=== PATIENT | male | born 1960 | race Caucasian/White ===

== ENCOUNTER 2018-09-20 16:03 | Emergency (ER) | payer BC ==
[~2018-09-20] VITALS: Ht 175.3 cm; Wt 103.6 kg
--- NOTE | 2018-09-20 16:52 | NUR ---
Patient ambulated to [facility] bed from [facility] with slow but steady gait. at bedside.
--- NOTE | 2018-09-20 17:00 | NUR ---
Patients came to nurses station stating that her husbands pupils are changing and that he is drooling and some facial droop. Focused assessment completed. pupils are 1 mm. Not tested with light. Pts smile equal, puffed cheeks equally, tongue midline. Primary RN Angle informed.
--- NOTE | 2018-09-20 17:58 | NUR ---
Patient to CT in w/c.
--- NOTE | 2018-09-20 18:07 | NUR ---
Patient back from CT
[2018-09-20 18:25] LABS: MAGNESIUM 2.4 MG/DL (1.5-2.4)
[2018-09-20] MEDS ORDERED: normal saline 1000ml 1,000 ML IV ONE (18:36)
[2018-09-20] MEDS ORDERED: proCHLORperazine 10 MG/2 ml inj IV ONE (18:40)
[2018-09-20 18:48] LABS: BASOPHILS % (AUTO) 0.2 % (0-1); EOSINOPHILS % (AUTO) 0.2 % (0-6); HEMATOCRIT 49.7 % (42.0-52.0); HEMOGLOBIN 16.4 g/dl (14.0-17.9); LYMPHOCYTES # (AUTO) 1.1 X10'3 (1.1-4.8); LYMPHOCYTES % (AUTO) 7.5 % (21-51); MEAN CORPUSCULAR HEMOGLOBIN 29.2 PG (27.0-31.0); MEAN CORPUSCULAR HGB CONC 33.1 g/dL (33.0-36.5); MEAN CORPUSCULAR VOLUME 88.2 FL (78-98); MEAN PLATELET VOLUME 8.4 FL (7.4-10.4); MONOCYTES # (AUTO) 0.9 X10'3 (0-0.9); MONOCYTES % (AUTO) 6.4 % (2-12); NEUTROPHILS # (AUTO) 12.6 X10'3 (1.8-7.7); NEUTROPHILS % (AUTO) 85.7 % (42-75); PLATELET COUNT 396 X10'3 (140-440); RED BLOOD COUNT 5.63 X10'6 (4.70-6.10); RED CELL DISTRIBUTION WIDTH 13.1 % (11.5-14.5); WHITE BLOOD COUNT 14.7 X10'3 (4.5-11.0)
[2018-09-20 18:59] LABS: ALANINE AMINOTRANSFERASE 30 U/L (12-78); ALBUMIN 3.9 G/DL (3.4-5.0); ALBUMIN/GLOBULIN RATIO 0.8 (1.1-1.5); ALKALINE PHOSPHATASE 110 IU/L (46-116); ANION GAP 11 (8-16); ASPARTATE AMINO TRANSFERASE 10 U/L (10-37); BILIRUBIN,TOTAL 0.5 MG/DL (0.1-1.0); BLOOD UREA NITROGEN 12 MG/DL (7-18); BUN/CREATININE RATIO 11.8 (5.4-32.0); CALCIUM 9.5 MG/DL (8.5-10.1); CHLORIDE 96 MMOL/L (99-107); CREATININE 1.02 MG/DL (0.60-1.10); GLUCOSE 119 MG/DL (70-104); POTASSIUM 3.6 MMOL/L (3.5-5.1); SODIUM 137 MMOL/L (135-145); TOTAL CARBON DIOXIDE 29.8 MMOL/L (24-32); TOTAL PROTEIN 8.5 G/DL (6.4-8.2); eGFR 75 ML/MIN
[2018-09-20 19:01] LABS: PARTIAL THROMBOPLASTIN TIME 32 SECONDS (22-32)
[2018-09-20 19:02] LABS: TROPONIN I < 0.04 NG/ML (0.0-0.05)
[2018-09-20] MEDS ORDERED: dexamethasone sod phosphate 10mg/ml inj IV STA (20:08)
[2018-09-20] MEDS ORDERED: ondansetron/PF 4mg/2ml inj IV ONE (20:10)
[2018-09-20 20:28] VITALS: BP 166/106
== END 2018-09-20 21:26 | disposition short-term general hospital (02) ==
LOC: ER 16:03
DX: G93.89 Other specified disorders of brain (principal); C71.9 Malignant neoplasm of brain, unspecified; G93.5 Compression of brain; I10 Essential (primary) hypertension; R42 Dizziness and giddiness; R41.0 Disorientation, unspecified
CPT/HCPCS: 36415; 70460; 71045; 80053; 83735; 84484; 85025; 85610; 85730; 93005; 96361; 96374; 96375; 99291; 99292; J0780; J1100; J2405; J7030

== ENCOUNTER 2018-12-31 10:38 | Emergency (ER) | payer BC ==
[~2018-12-31] VITALS: Ht 177.8 cm; Wt 100.0 kg
--- NOTE | 2018-12-31 11:00 | NUR ---
Patient diagnosed with Glioblastoma on September 20, 2018. Patient is followed at [facility] by Dr. Yeung office phone number . His radiation/oncologist id Dr Wan office number . Patient finished his radiation on last 12/08/18. Patient is taking part of a clinical trial (immunotherapy) and his last dose was Friday, December 28, 2018.
[2018-12-31] MEDS ORDERED: IBUP-1984 PO (11:02)
[2018-12-31] MEDS ORDERED: ONDA4TAB6 PO (11:02)
[2018-12-31] MEDS ORDERED: DIPH-423 PO (11:02)
[2018-12-31] MEDS ORDERED: FAMO40TA73 PO (11:02)
[2018-12-31] MEDS ORDERED: AMLO2.5T2 PO (11:02)
[2018-12-31] MEDS ORDERED: LOSA25TA96 PO (11:02)
[2018-12-31 11:03] LABS: BASOPHILS % (AUTO) 0.3 % (0-1); EOSINOPHILS # (AUTO) 0.2 X10'3 (0-0.9); EOSINOPHILS % (AUTO) 4.5 % (0-6); HEMOGLOBIN 14.3 g/dl (14.0-17.9); LYMPHOCYTES # (AUTO) 0.5 X10'3 (1.1-4.8); LYMPHOCYTES % (AUTO) 11.2 % (21-51); MEAN CORPUSCULAR HEMOGLOBIN 32.1 PG (27.0-31.0); MEAN CORPUSCULAR HGB CONC 34.8 g/dL (33.0-36.5); MEAN CORPUSCULAR VOLUME 92.3 FL (78-98); MEAN PLATELET VOLUME 6.2 FL (7.4-10.4); MONOCYTES # (AUTO) 0.3 X10'3 (0-0.9); MONOCYTES % (AUTO) 6.3 % (2-12); NEUTROPHILS # (AUTO) 3.5 X10'3 (1.8-7.7); NEUTROPHILS % (AUTO) 77.7 % (42-75); PLATELET COUNT 200 X10'3 (140-440); RED BLOOD COUNT 4.44 X10'6 (4.70-6.10); RED CELL DISTRIBUTION WIDTH 16.3 % (11.5-14.5); WHITE BLOOD COUNT 4.5 X10'3 (4.5-11.0)
--- NOTE | 2018-12-31 11:11 | NUR ---
Dr Torres asked if he wanted tele nuero and or a ua; neither wanted by Dr Torres at this time
[2018-12-31 11:20] LABS: PARTIAL THROMBOPLASTIN TIME 27 SECONDS (22-32)
[2018-12-31 11:24] LABS: ALANINE AMINOTRANSFERASE 34 U/L (12-78); ALBUMIN 3.2 G/DL (3.4-5.0); ALBUMIN/GLOBULIN RATIO 0.8 (1.1-1.5); ALKALINE PHOSPHATASE 80 IU/L (46-116); ANION GAP 10 (8-16); ASPARTATE AMINO TRANSFERASE 13 U/L (10-37); BILIRUBIN,TOTAL 0.4 MG/DL (0.1-1.0); BLOOD UREA NITROGEN 7 MG/DL (7-18); BUN/CREATININE RATIO 7.4 (5.4-32.0); CALCIUM 8.9 MG/DL (8.5-10.1); CHLORIDE 104 MMOL/L (99-107); CREATININE 0.95 MG/DL (0.60-1.10); GLUCOSE 102 MG/DL (70-104); POTASSIUM 3.5 MMOL/L (3.5-5.1); SODIUM 141 MMOL/L (135-145); TOTAL CARBON DIOXIDE 26.7 MMOL/L (24-32); TOTAL PROTEIN 7.2 G/DL (6.4-8.2); eGFR 81 ML/MIN
[2018-12-31 11:28] LABS: TROPONIN I < 0.04 NG/ML (0.0-0.05)
--- NOTE | 2018-12-31 11:45 | NUR ---
stroke alert called off dr marvin : patient has history of right temporal glioblastoma removal in september of this year with susequent radiation, chemo, and immunotherapy
--- NOTE | 2018-12-31 11:53 | NUR ---
[facility] TRANSFER [facility] HAS CALLED STATING DR. APPLE, NEUROLOGIST IS REVIEWING THE IMAGES AND WILL CALL BACK.
[2018-12-31] MEDS ORDERED: dexamethasone 4mg/ml inj IV SCH (13:20)
[2018-12-31 13:48] VITALS: BP 149/86
== END 2018-12-31 14:00 | disposition short-term general hospital (02) ==
LOC: ER 10:40
DX: I63.9 Cerebral infarction, unspecified (principal); C71.9 Malignant neoplasm of brain, unspecified; I10 Essential (primary) hypertension; Z79.899 Other long term (current) drug therapy
CPT/HCPCS: 36415; 70450; 71045; 80053; 82948; 84484; 85025; 85610; 85730; 93005; 96374; 99291; J1100

== ENCOUNTER 2019-02-11 09:20 | Outpatient (CLI) | payer BC ==
[~2019-02-11 09:20] MED LIST: AMLO2.5T2 PO; DIPH-423 PO; FAMO40TA73 PO; IBUP-1984 PO; LOSA25TA96 PO; ONDA4TAB6 PO
[2019-02-11] MEDS ORDERED: POLY17PO10 PO (13:29)
[2019-02-11] MEDS ORDERED: LEVE500T PO (13:29)
[2019-02-11] MEDS ORDERED: ONDA8TAB12 PO ×2 (13:29→14:29)
[2019-02-11] MEDS ORDERED: TEMO250C6 PO (13:29)
[2019-02-11] MEDS ORDERED: AMLO10TA13 PO (14:31)
[2019-02-11] MEDS ORDERED: LOSA100T57 PO (14:33)
== END 2019-02-11 23:59 | disposition home or self-care (01) ==
LOC: VAS 09:20
PROVIDERS: ATTEND Internal Medicine Hematology & Oncology
DX: I82.402 Acute embolism and thrombosis of unspecified deep veins of left lower extremity (principal); R60.9 Edema, unspecified; C71.2 Malignant neoplasm of temporal lobe
CPT/HCPCS: 93971

== ENCOUNTER 2019-02-11 11:19 | Inpatient (IN) | payer BC ==
[~2019-02-11] VITALS: Ht 177.8 cm; Wt 102.7 kg
[2019-02-11] MEDS ORDERED: ONDA8TAB12 PO ×2 (13:29→14:29)
[2019-02-11] MEDS ORDERED: TEMO250C6 PO (13:29)
[2019-02-11] MEDS ORDERED: LEVE500T PO (13:29)
[2019-02-11] MEDS ORDERED: POLY17PO10 PO (13:29)
[2019-02-11] MEDS ORDERED: iohexol 350MG/ML 100ml bottle IV ONE (14:05)
[2019-02-11 14:16] LABS: EOSINOPHILS % (AUTO) 0 % (0-6); HEMOGLOBIN 12.5 g/dl (14.0-17.9); LYMPHOCYTES # (AUTO) 0.5 X10'3 (1.1-4.8); MEAN CORPUSCULAR HEMOGLOBIN 31.9 PG (27.0-31.0); MONOCYTES # (AUTO) 0.7 X10'3 (0-0.9); MONOCYTES % (AUTO) 4.1 % (2-12)
[2019-02-11 14:18] LABS: BASOPHILS % (AUTO) 0.1 % (0-1); HEMATOCRIT 36.4 % (42.0-52.0); LYMPHOCYTES % (AUTO) 2.8 % (21-51); MEAN CORPUSCULAR HGB CONC 34.4 g/dL (33.0-36.5); MEAN CORPUSCULAR VOLUME 92.6 FL (78-98); MEAN PLATELET VOLUME 6.8 FL (7.4-10.4); NEUTROPHILS # (AUTO) 16.5 X10'3 (1.8-7.7); PLATELET COUNT 306 X10'3 (140-440); RED BLOOD COUNT 3.93 X10'6 (4.70-6.10); RED CELL DISTRIBUTION WIDTH 15.6 % (11.5-14.5); WHITE BLOOD COUNT 17.8 X10'3 (4.5-11.0)
[2019-02-11 14:24] LABS: ALANINE AMINOTRANSFERASE 33 U/L (12-78); ALBUMIN/GLOBULIN RATIO 0.8 (1.1-1.5); ALKALINE PHOSPHATASE 87 IU/L (46-116); ANION GAP 8 (8-16); ASPARTATE AMINO TRANSFERASE 22 U/L (10-37); BILIRUBIN,TOTAL 0.3 MG/DL (0.1-1.0); BLOOD UREA NITROGEN 17 MG/DL (7-18); BUN/CREATININE RATIO 21.3 (5.4-32.0); CALCIUM 8.9 MG/DL (8.5-10.1); CHLORIDE 107 MMOL/L (99-107); GLUCOSE 103 MG/DL (70-104); SODIUM 141 MMOL/L (135-145); TOTAL CARBON DIOXIDE 26.2 MMOL/L (24-32); TOTAL PROTEIN 6.6 G/DL (6.4-8.2); eGFR > 90 ML/MIN
[2019-02-11 14:30] LABS: ANISOCYTOSIS 1+; PARTIAL THROMBOPLASTIN TIME 21 SECONDS (22-32); PLATELET ESTIMATE NORMAL; TOTAL CELLS COUNTED 100; TOXIC GRANULATION 1+
[2019-02-11] MEDS ORDERED: AMLO10TA13 PO (14:31)
[2019-02-11] MEDS ORDERED: LOSA100T57 PO (14:33)
[2019-02-11] MEDS ORDERED: enoxaparin 100mg/ml syringe SUBCUT ONE (15:05)
[2019-02-11] MEDS ORDERED: potassium CL 10mEq/100ml bag 100 ML IV PRN ×2 (15:35)
[2019-02-11] MEDS ORDERED: magnesium Cl slow-release 64mg tablet PO PRN (15:35)
[2019-02-11] MEDS ORDERED: potassium Cl 20 mEq SR tablet PO PRN (15:35)
[2019-02-11] MEDS ORDERED: magnesium 4gm in 100ml NS 100 ML IV PRN (15:35)
[2019-02-11] MEDS ORDERED: morphine 2 MG/ML inj. syringe IV PRN (15:35)
[2019-02-11] MEDS ORDERED: ondansetron/PF 4mg/2ml inj IV PRN (15:35)
[2019-02-11] MEDS ORDERED: magnesium 2GM in 50ml NS 50 ML IV PRN (15:35)
--- NOTE | 2019-02-11 16:35 | NUR ---
I have received patient report from Nemesio THAYER
[2019-02-11 17:14] VITALS: BP 147/96
[2019-02-11] MEDS ORDERED: polyethylene glycol 3350 17gm powd pack PO PRN (17:40)
--- NOTE | 2019-02-11 18:10 | NUR ---
Patient in room ORTHO 4024. I have received report from FLACA Dominguez and had the opportunity to ask questions and assume patient care.
--- NOTE | 2019-02-11 18:30 | NUR ---
Problems reprioritized. Patient report given, questions answered & plan of care reviewed with Jennifer THAYER.
[2019-02-11] MEDS: levetiracetam 250mg tablet PO SCH (19:40)
[2019-02-11] MEDS: enoxaparin 100mg/ml syringe SUBCUT SCH (19:42)
[2019-02-11] MEDS: K and/or MAG REPLACEMENT MC SCH (20:00)
[2019-02-11] MEDS: ondansetron 4mg rapidly disintigrating tab PO SCH (20:10)
[2019-02-11 22:00] VITALS: BP 125/67
[2019-02-12 04:33] LABS: BASOPHILS % (AUTO) 0.1 % (0-1); EOSINOPHILS % (AUTO) 0 % (0-6); HEMATOCRIT 35.1 % (42.0-52.0); LYMPHOCYTES # (AUTO) 0.6 X10'3 (1.1-4.8); LYMPHOCYTES % (AUTO) 4.4 % (21-51); MEAN CORPUSCULAR HGB CONC 34.3 g/dL (33.0-36.5); MEAN CORPUSCULAR VOLUME 93.3 FL (78-98); MEAN PLATELET VOLUME 6.9 FL (7.4-10.4); MONOCYTES # (AUTO) 1.1 X10'3 (0-0.9); MONOCYTES % (AUTO) 8.2 % (2-12); NEUTROPHILS # (AUTO) 12.1 X10'3 (1.8-7.7); NEUTROPHILS % (AUTO) 87.3 % (42-75); PLATELET COUNT 308 X10'3 (140-440); RED BLOOD COUNT 3.77 X10'6 (4.70-6.10); RED CELL DISTRIBUTION WIDTH 15.2 % (11.5-14.5); WHITE BLOOD COUNT 13.8 X10'3 (4.5-11.0)
[2019-02-12 04:44] LABS: ALBUMIN 2.7 G/DL (3.4-5.0); ANION GAP 8 (8-16); BLOOD UREA NITROGEN 21 MG/DL (7-18); BUN/CREATININE RATIO 24.4 (5.4-32.0); CALCIUM 8.5 MG/DL (8.5-10.1); CHLORIDE 107 MMOL/L (99-107); CREATININE 0.86 MG/DL (0.60-1.10); GLUCOSE 97 MG/DL (70-104); POTASSIUM 3.9 MMOL/L (3.5-5.1); SODIUM 142 MMOL/L (135-145); TOTAL CARBON DIOXIDE 27.3 MMOL/L (24-32); eGFR > 90 ML/MIN
[2019-02-12 06:10] VITALS: BP 166/77
--- NOTE | 2019-02-12 06:12 | NUR ---
Problems reprioritized. Patient report given, questions answered & plan of care reviewed with FLACA Dominguez.
--- NOTE | 2019-02-12 06:30 | NUR ---
Patient in room ORTHO 4024. I have received report from Jennifer THAYER and had the opportunity to ask questions and assume patient care.
[2019-02-12] MEDS: K and/or MAG REPLACEMENT MC SCH ×2 (08:00→20:00)
[2019-02-12] MEDS: enoxaparin 100mg/ml syringe SUBCUT SCH ×2 (08:39→19:40)
[2019-02-12] MEDS: losartan 50mg tablet PO SCH (08:40)
[2019-02-12] MEDS: amLODIPine 5mg tablet PO SCH (08:40)
[2019-02-12] MEDS: famotidine 20mg tablet PO SCH (08:40)
[2019-02-12] MEDS: levetiracetam 250mg tablet PO SCH ×2 (08:40→19:38)
[2019-02-12] MEDS: ondansetron 4mg rapidly disintigrating tab PO SCH ×2 (08:40→19:37)
[2019-02-12 10:00] VITALS: BP 123/72
[2019-02-12 18:00] VITALS: BP 104/59
--- NOTE | 2019-02-12 19:00 | NUR ---
Patient in room ORTHO 4024. I have received report from Wilbert THAYER and had the opportunity to ask questions and assume patient care.
[2019-02-12] MEDS: HYDROcodone/acetaminophen 5mg/325mg tablet PO PRN (19:39)
[2019-02-12 22:00] VITALS: BP 115/63
[2019-02-13] MEDS: HYDROcodone/acetaminophen 5mg/325mg tablet PO PRN ×3 (04:07→16:54)
[2019-02-13 06:00] VITALS: BP 126/65
[2019-02-13 06:06] LABS: BASOPHILS % (AUTO) 0.1 % (0-1); EOSINOPHILS # (AUTO) 0.1 X10'3 (0-0.9); EOSINOPHILS % (AUTO) 0.8 % (0-6); HEMATOCRIT 33.7 % (42.0-52.0); HEMOGLOBIN 11.5 g/dl (14.0-17.9); LYMPHOCYTES # (AUTO) 0.5 X10'3 (1.1-4.8); LYMPHOCYTES % (AUTO) 5.6 % (21-51); MEAN CORPUSCULAR HEMOGLOBIN 32.1 PG (27.0-31.0); MEAN CORPUSCULAR HGB CONC 34.1 g/dL (33.0-36.5); MEAN CORPUSCULAR VOLUME 94.2 FL (78-98); MEAN PLATELET VOLUME 6.6 FL (7.4-10.4); MONOCYTES # (AUTO) 0.9 X10'3 (0-0.9); MONOCYTES % (AUTO) 10.5 % (2-12); NEUTROPHILS # (AUTO) 7.4 X10'3 (1.8-7.7); PLATELET COUNT 247 X10'3 (140-440); RED BLOOD COUNT 3.58 X10'6 (4.70-6.10); RED CELL DISTRIBUTION WIDTH 15.5 % (11.5-14.5); WHITE BLOOD COUNT 8.9 X10'3 (4.5-11.0)
[2019-02-13 06:08] LABS: ALBUMIN 2.3 G/DL (3.4-5.0); ANION GAP 6 (8-16); BLOOD UREA NITROGEN 20 MG/DL (7-18); BUN/CREATININE RATIO 21.3 (5.4-32.0); CHLORIDE 108 MMOL/L (99-107); CREATININE 0.94 MG/DL (0.60-1.10); GLUCOSE 87 MG/DL (70-104); MAGNESIUM 1.8 MG/DL (1.5-2.4); POTASSIUM 3.4 MMOL/L (3.5-5.1); SODIUM 141 MMOL/L (135-145); TOTAL CARBON DIOXIDE 26.7 MMOL/L (24-32); eGFR 82 ML/MIN
--- NOTE | 2019-02-13 06:15 | NUR ---
Patient in room ORTHO 4024. I have received report from FLACA Larson and had the opportunity to ask questions and assume patient care.
[2019-02-13 06:47] LABS: NUCLEATED RED BLOOD CELLS 2 /100WBC (0-0); TOTAL CELLS COUNTED 100
[2019-02-13 06:48] LABS: ANISOCYTOSIS 1+; PLATELET ESTIMATE NORMAL; POLYCHROMASIA 1+; TOXIC GRANULATION 1+
[2019-02-13] MEDS: losartan 50mg tablet PO SCH (08:33)
[2019-02-13] MEDS: amLODIPine 5mg tablet PO SCH (08:34)
[2019-02-13] MEDS: ondansetron 4mg rapidly disintigrating tab PO SCH ×2 (08:34→20:08)
[2019-02-13] MEDS: famotidine 20mg tablet PO SCH (08:34)
[2019-02-13] MEDS: levetiracetam 250mg tablet PO SCH ×2 (08:34→20:09)
[2019-02-13] MEDS: enoxaparin 100mg/ml syringe SUBCUT SCH ×2 (08:36→20:11)
[2019-02-13] MEDS: potassium Cl 20 mEq SR tablet PO PRN ×3 (08:38→19:10)
[2019-02-13] MEDS: K and/or MAG REPLACEMENT MC SCH ×2 (08:39→20:00)
[2019-02-13 10:00] VITALS: BP 127/69
[2019-02-13 18:00] VITALS: BP 126/69
--- NOTE | 2019-02-13 18:30 | NUR ---
Problems reprioritized. Patient report given, questions answered & plan of care reviewed with FLACA Recinos.
[2019-02-13 22:00] VITALS: BP 121/69
[2019-02-14] MEDS: HYDROcodone/acetaminophen 5mg/325mg tablet PO PRN ×2 (02:16→08:26)
[2019-02-14 06:15] LABS: BASOPHILS % (AUTO) 0.2 % (0-1); EOSINOPHILS # (AUTO) 0.1 X10'3 (0-0.9); EOSINOPHILS % (AUTO) 1.4 % (0-6); HEMATOCRIT 32.7 % (42.0-52.0); HEMOGLOBIN 11.4 g/dl (14.0-17.9); LYMPHOCYTES # (AUTO) 0.3 X10'3 (1.1-4.8); LYMPHOCYTES % (AUTO) 3.5 % (21-51); MEAN CORPUSCULAR HEMOGLOBIN 32.5 PG (27.0-31.0); MEAN CORPUSCULAR HGB CONC 34.8 g/dL (33.0-36.5); MEAN CORPUSCULAR VOLUME 93.3 FL (78-98); MEAN PLATELET VOLUME 7.2 FL (7.4-10.4); MONOCYTES # (AUTO) 0.7 X10'3 (0-0.9); MONOCYTES % (AUTO) 7.8 % (2-12); NEUTROPHILS # (AUTO) 7.8 X10'3 (1.8-7.7); NEUTROPHILS % (AUTO) 87.1 % (42-75); PLATELET COUNT 224 X10'3 (140-440); RED CELL DISTRIBUTION WIDTH 15.4 % (11.5-14.5)
[2019-02-14 06:26] LABS: ALBUMIN 2.2 G/DL (3.4-5.0); ANION GAP 7 (8-16); BLOOD UREA NITROGEN 15 MG/DL (7-18); BUN/CREATININE RATIO 18.3 (5.4-32.0); CALCIUM 8.2 MG/DL (8.5-10.1); CHLORIDE 107 MMOL/L (99-107); CREATININE 0.82 MG/DL (0.60-1.10); GLUCOSE 97 MG/DL (70-104); MAGNESIUM 1.8 MG/DL (1.5-2.4); POTASSIUM 3.7 MMOL/L (3.5-5.1); SODIUM 139 MMOL/L (135-145); TOTAL CARBON DIOXIDE 24.6 MMOL/L (24-32); eGFR > 90 ML/MIN
--- NOTE | 2019-02-14 06:27 | NUR ---
Patient in room ORTHO 4024. I have received report from FLACA Crabtree and had the opportunity to ask questions and assume patient care.
[2019-02-14 07:24] VITALS: BP 120/76
[2019-02-14 08:00] VITALS: BP 120/73
[2019-02-14] MEDS: K and/or MAG REPLACEMENT MC SCH (08:00)
[2019-02-14] MEDS ORDERED: famotidine 10mg tablet PO SCH ×3 (08:19→11:12)
[2019-02-14] MEDS: levetiracetam 250mg tablet PO SCH (08:22)
[2019-02-14] MEDS: losartan 50mg tablet PO SCH (08:22)
[2019-02-14] MEDS: amLODIPine 5mg tablet PO SCH (08:22)
[2019-02-14] MEDS: ondansetron 4mg rapidly disintigrating tab PO SCH (08:23)
[2019-02-14] MEDS: enoxaparin 100mg/ml syringe SUBCUT SCH (08:24)
[2019-02-14 08:31] LABS: MONOCYTES % (MANUAL) 7 % (2-12); NEUTROPHILS % (MANUAL) 80 % (42-75); TOTAL CELLS COUNTED 100
[2019-02-14 08:32] LABS: PLATELET ESTIMATE NORMAL
[2019-02-14 08:33] LABS: ANISOCYTOSIS 1+; POLYCHROMASIA 1+
[2019-02-14] MEDS ORDERED: famotidine 20mg tablet PO SCH (09:55)
[2019-02-14] MEDS ORDERED: ENOX100D5 SUBCUT (10:32)
--- NOTE | 2019-02-14 11:13 | NUR ---
Student Medication Administration: For this medication-pass time frame [id number], all medications were reviewed,administered and documented per hospital policy by Michelle Lainez. Student documentation: I have reviewed and agree with all interventions, assessments performed and documented by Michelle Lainez.
--- NOTE | 2019-02-14 11:57 | NUR ---
Problems reprioritized. Patient report given, questions answered & plan of care reviewed with FLACA Crabtree.
--- NOTE | 2019-02-14 15:40 | NUR ---
Received discharge orders from Dr. Franklin. has questions that she would like to speak to about prior to discharge regarding plan of care following discharge, ambulatory status, and further treatment if needed. Pts sleeping so took pts Zainab to dictation room to speak on the phone with . TC placed and informed Dr.Behl Juárezy has questions for her and would like to speak with her. Dr. Franklin infomed Zainab that the treatment of the patients DVT and PE's would be to use Lovenox, but that pt will continue the Lovenox 100mg bid x [address] Franklin informed Zainab that pt can ambulate and his pain and swelling may last up to a couple of weeks. advised pt to follow up with D MD in the next few days. Zainab reported pt has an appt at [facility] next Thursday. Zainab expressed concern over might needing to return to [facility] if the pt has any complications post discharge. Dr. Franklin informed her to return here if any concerns. RX for Lovenox called into [facility] on [address] for bid dose x 30days. IV dc'd from [facility] with cannula intact. Applied slight pressure over IV site and applied bandaid. Reviewed discharge paperwork with pt and his Zainab.Discharged pt via w/c to front lobby in a private vehicle.
[2019-02-15] MEDS ORDERED: famotidine 20mg tablet PO SCH (08:00)
== END 2019-02-14 15:40 | disposition home or self-care (01) | DRG 299 ==
LOC: ER 11:20 → ED HOLD 15:41 → ORTHO 4S 16:50
PROVIDERS: ADMIT Internal Medicine; ATTEND Internal Medicine
PROC: B32T1ZZ Computerized Tomography (CT Scan) of Left Pulmonary Artery using Low Osmolar Contrast (ICD-10-PCS; principal; 2019-02-11)
PROC: B3201ZZ Computerized Tomography (CT Scan) of Thoracic Aorta using Low Osmolar Contrast (ICD-10-PCS; 2019-02-11)
PROC: B32S1ZZ Computerized Tomography (CT Scan) of Right Pulmonary Artery using Low Osmolar Contrast (ICD-10-PCS; 2019-02-11)
DX: I82.412 Acute embolism and thrombosis of left femoral vein (principal); I26.99 Other pulmonary embolism without acute cor pulmonale; C71.9 Malignant neoplasm of brain, unspecified; I10 Essential (primary) hypertension; Z80.8 Family history of malignant neoplasm of other organs or systems; Z82.49 Family history of ischemic heart disease and other diseases of the circulatory system; Z79.899 Other long term (current) drug therapy
CPT/HCPCS: 36415; 71275; 80048; 80053; 83735; 84145; 85025; 85610; 85730; 87081; 93306; 96372; 99285; G0378; J1650; Q9967

== ENCOUNTER 2019-03-20 17:34 | Inpatient (IN) | payer BC ==
[~2019-03-20] VITALS: Ht 177.8 cm; Wt 105.0 kg
[~2019-03-20 17:34] MED LIST changes: +AMLO10TA13 PO; -AMLO2.5T2 PO; -DIPH-423 PO; +ENOX100D5 SUBCUT; -IBUP-1984 PO; +LEVE500T PO; +LOSA100T57 PO; -LOSA25TA96 PO; +ONDA8TAB65 PO; +POLY17PO10 PO; +TEMO250C6 PO
--- NOTE | 2019-03-20 17:45 | NUR ---
Malachi castro in ED - 03/20/19 at 1752 by DAMIEN pt. at ct via sasha brandt
--- NOTE | 2019-03-20 17:51 | NUR ---
DR RICHMOND NOTIFIED OF PT S/S, VS, AND RECENT VISIT TO NEUROLOGIST AND MRI A WEEK AGO, PT INSTRUCTED TO GO TO ED TO GET IV STEROIDS IF LEFT SIDED WEAKNESS PROGRESSED.
[2019-03-20 18:40] LABS: BASOPHILS % (AUTO) 0.2 % (0-1); EOSINOPHILS # (AUTO) 0.1 X10'3 (0-0.9); EOSINOPHILS % (AUTO) 1.8 % (0-6); HEMATOCRIT 37.7 % (42.0-52.0); LYMPHOCYTES # (AUTO) 0.3 X10'3 (1.1-4.8); MEAN CORPUSCULAR HEMOGLOBIN 33.2 PG (27.0-31.0); MEAN CORPUSCULAR HGB CONC 34.4 g/dL (33.0-36.5); MEAN CORPUSCULAR VOLUME 96.6 FL (78-98); MEAN PLATELET VOLUME 6.2 FL (7.4-10.4); MONOCYTES # (AUTO) 0.3 X10'3 (0-0.9); MONOCYTES % (AUTO) 8.5 % (2-12); NEUTROPHILS # (AUTO) 2.5 X10'3 (1.8-7.7); NEUTROPHILS % (AUTO) 80.5 % (42-75); PLATELET COUNT 306 X10'3 (140-440); RED CELL DISTRIBUTION WIDTH 16.3 % (11.5-14.5); WHITE BLOOD COUNT 3.1 X10'3 (4.5-11.0)
[2019-03-20 18:47] LABS: PARTIAL THROMBOPLASTIN TIME 28 SECONDS (22-32)
[2019-03-20 19:07] LABS: ALANINE AMINOTRANSFERASE 62 U/L (12-78); ALBUMIN 3.5 G/DL (3.4-5.0); ALBUMIN/GLOBULIN RATIO 0.9 (1.1-1.5); ALKALINE PHOSPHATASE 92 IU/L (46-116); ANION GAP 9 (8-16); ASPARTATE AMINO TRANSFERASE 33 U/L (10-37); BILIRUBIN,TOTAL 0.4 MG/DL (0.1-1.0); BLOOD UREA NITROGEN 9 MG/DL (7-18); BUN/CREATININE RATIO 8.7 (5.4-32.0); CALCIUM 9.1 MG/DL (8.5-10.1); CHLORIDE 109 MMOL/L (99-107); CREATININE 1.03 MG/DL (0.60-1.10); GLUCOSE 121 MG/DL (70-104); POTASSIUM 3.9 MMOL/L (3.5-5.1); SODIUM 144 MMOL/L (135-145); TOTAL CARBON DIOXIDE 26.1 MMOL/L (24-32); TOTAL PROTEIN 7.3 G/DL (6.4-8.2); eGFR 74 ML/MIN
[2019-03-20 19:08] LABS: TROPONIN I < 0.04 NG/ML (0.0-0.05)
[2019-03-20] MEDS ORDERED: acetaminophen 325mg tablet PO ONE (19:20)
[2019-03-20] MEDS ORDERED: CefTRIAXone/D5W-Rocephin 1gm 50 ML IV ONE (19:30)
[2019-03-20] MEDS ORDERED: cefepime 1GM in D5W 50mL 50 ML IV ONE (20:15)
[2019-03-20] MEDS ORDERED: vancomycin/NS 1 GM ADD-VANTAGE 250 ML IV ONE (20:20)
[2019-03-20] MEDS ORDERED: hydrocortisone 10mg tablet PO ONE (20:25)
[2019-03-20] MEDS ORDERED: hydrocortisone 10mg tablet PO SCH (20:25)
[2019-03-20] MEDS ORDERED: ondansetron/PF 4mg/2ml inj IV PRN (20:55)
[2019-03-20] MEDS ORDERED: morphine 2 MG/ML inj. syringe IV PRN ×2 (20:55)
[2019-03-20] MEDS ORDERED: mag hydrox/Alum hydrox/simeth 30ml oral suspension PO PRN (20:55)
[2019-03-20] MEDS ORDERED: acetaminophen 325mg tablet PO PRN ×2 (20:55)
[2019-03-20] MEDS ORDERED: HYDROcodone/acetaminophen 5mg/325mg tablet PO PRN (20:55)
[2019-03-20] MEDS ORDERED: magnesium hydroxide 30ml (MOM) UD suspension PO PRN (20:55)
[2019-03-20] MEDS ORDERED: VANCOMYCIN 1gm/H2O 200ml PB 200 ML IV ONE (21:00)
[2019-03-20 21:52] LABS: MAGNESIUM 2.1 MG/DL (1.5-2.4); PHOSPHORUS 2.9 MG/DL (2.3-4.5)
[2019-03-20] MEDS ORDERED: ondansetron/PF 4mg/2ml inj IV ONE (21:55)
--- NOTE | 2019-03-20 21:57 | NUR ---
PT ORDER FOR ZOFRAN INCREASED FROM 4 mg TO 8 mg TO CONTROL NAUSEA NEEDED FOR CHEMOTHERAPY NAUSEA.
[2019-03-20] MEDS: normal saline 1000ml 1,000 ML IV SCH (22:38)
[2019-03-20] MEDS ORDERED: polyethylene glycol 3350 17gm powd pack PO PRN (22:55)
[2019-03-20] MEDS ORDERED: levetiracetam 250mg tablet PO ONE (22:55)
--- NOTE | 2019-03-20 22:55 | NUR ---
PT SELF ADMINISTERED CHEMOTHERAPEUTIC MEDICATION. REST OF MEDICATION SENT TO PHARMACY. MEDICATION REQUIRES GLOVES WHEN HANDLING.
[2019-03-20 23:20] VITALS: BP 131/76
[2019-03-21 00:18] LABS: CLARITY,URINE CLEAR (Clear); COLOR,URINE YELLOW (Yellow); GLUCOSE, URINE NEGATIVE (Neg); KETONES,URINE NEGATIVE (Neg); LEUKOCYTE ESTERASE ,URINE NEGATIVE (Neg); NITRITES, URINE NEGATIVE (Neg); OCCULT BLOOD,URINE SMALL (Neg); PROTEIN,URINE NEGATIVE (Neg); UROBILINOGEN,URINE 0.2 E.U/dL (0.2-1.0)
[2019-03-21 00:23] LABS: UA COLLECTION TYPE URINAL
[2019-03-21 00:24] LABS: BACTERIA,URINE NONE SEEN /HPF (Neg); RBC,URINE 0-2 /HPF (0-2); SQUAMOUS EPITHELIAL CELL,UR NONE SEEN /LPF (FEW); WBC,URINE NONE SEEN /HPF (0-4)
[2019-03-21] MEDS: cefepime 1GM in D5W 50mL 50 ML IV SCH ×3 (05:46→22:12)
[2019-03-21 06:00] VITALS: BP 134/76
--- NOTE | 2019-03-21 06:30 | NUR ---
received report from samantha, rn
[2019-03-21 07:33] LABS: BASOPHILS % (AUTO) 0.2 % (0-1); EOSINOPHILS % (AUTO) 0.4 % (0-6); HEMATOCRIT 32.6 % (42.0-52.0); HEMOGLOBIN 11.6 g/dl (14.0-17.9); LYMPHOCYTES # (AUTO) 0.2 X10'3 (1.1-4.8); LYMPHOCYTES % (AUTO) 7.3 % (21-51); MEAN CORPUSCULAR HEMOGLOBIN 33.7 PG (27.0-31.0); MEAN CORPUSCULAR HGB CONC 35.5 g/dL (33.0-36.5); MEAN CORPUSCULAR VOLUME 94.9 FL (78-98); MEAN PLATELET VOLUME 6.5 FL (7.4-10.4); MONOCYTES # (AUTO) 0.3 X10'3 (0-0.9); MONOCYTES % (AUTO) 11.8 % (2-12); NEUTROPHILS # (AUTO) 1.7 X10'3 (1.8-7.7); NEUTROPHILS % (AUTO) 80.3 % (42-75); PLATELET COUNT 240 X10'3 (140-440); RED BLOOD COUNT 3.43 X10'6 (4.70-6.10); RED CELL DISTRIBUTION WIDTH 16.6 % (11.5-14.5); WHITE BLOOD COUNT 2.1 X10'3 (4.5-11.0)
[2019-03-21 07:47] LABS: ALBUMIN 2.8 G/DL (3.4-5.0); ANION GAP 9 (8-16); BLOOD UREA NITROGEN 8 MG/DL (7-18); BUN/CREATININE RATIO 8.8 (5.4-32.0); CALCIUM 8.3 MG/DL (8.5-10.1); CHLORIDE 110 MMOL/L (99-107); CREATININE 0.91 MG/DL (0.60-1.10); GLUCOSE 131 MG/DL (70-104); POTASSIUM 3.8 MMOL/L (3.5-5.1); SODIUM 142 MMOL/L (135-145); eGFR 86 ML/MIN
[2019-03-21 08:14] LABS: ANISOCYTOSIS 1+; LARGE PLATELETS FEW; NUCLEATED RED BLOOD CELLS 3 /100WBC (0-0); PLATELET ESTIMATE NORMAL; TOTAL CELLS COUNTED 100
[2019-03-21] MEDS: amLODIPine 5mg tablet PO SCH (08:31)
[2019-03-21] MEDS: levetiracetam 250mg tablet PO SCH ×2 (08:32→20:11)
[2019-03-21] MEDS: famotidine 10mg tablet PO SCH (08:35)
[2019-03-21] MEDS: losartan 50mg tablet PO SCH (08:35)
[2019-03-21] MEDS: enoxaparin 100mg/ml syringe SUBCUT SCH ×2 (08:43→20:12)
[2019-03-21] MEDS: normal saline 1000ml 1,000 ML IV SCH ×2 (09:10→12:00)
[2019-03-21 10:00] VITALS: BP 130/81
[2019-03-21] MEDS ORDERED: dexamethasone 1mg tablet PO STA (12:06)
[2019-03-21] MEDS ORDERED: ondansetron 4mg rapidly disintigrating tab PO PRN (13:10)
[2019-03-21] MEDS ORDERED: ondansetron 4mg rapidly disintigrating tab PO ONE (14:00)
[2019-03-21] MEDS: lactobacillus rhamnosus 10,000 MMU CELLS/CAPSULE PO SCH (17:15)
[2019-03-21 18:00] VITALS: BP 143/82
--- NOTE | 2019-03-21 18:22 | NUR ---
GAVE REPORT TO June,
[2019-03-21] MEDS: dexamethasone 1mg tablet PO SCH (20:15)
--- NOTE | 2019-03-21 21:30 | NUR ---
Dr. Rivera called regarding chemo drugs not addressed,advice to clarify with oncologist.[id number] able to get a hold of oncologist advised to hold it.
[2019-03-21 22:00] VITALS: BP 110/66
[2019-03-22] MEDS: normal saline 1000ml 1,000 ML IV SCH ×3 (00:12→22:51)
[2019-03-22] MEDS: cefepime 1GM in D5W 50mL 50 ML IV SCH ×3 (05:47→22:24)
[2019-03-22 06:24] LABS: BASOPHILS % (AUTO) 0.2 % (0-1); EOSINOPHILS % (AUTO) 0.2 % (0-6); HEMATOCRIT 32.2 % (42.0-52.0); HEMOGLOBIN 11.3 g/dl (14.0-17.9); LYMPHOCYTES # (AUTO) 0.2 X10'3 (1.1-4.8); LYMPHOCYTES % (AUTO) 9.8 % (21-51); MEAN CORPUSCULAR HEMOGLOBIN 33.2 PG (27.0-31.0); MEAN CORPUSCULAR VOLUME 94.9 FL (78-98); MEAN PLATELET VOLUME 6.5 FL (7.4-10.4); MONOCYTES # (AUTO) 0.2 X10'3 (0-0.9); MONOCYTES % (AUTO) 9.8 % (2-12); PLATELET COUNT 246 X10'3 (140-440); WHITE BLOOD COUNT 2.5 X10'3 (4.5-11.0)
[2019-03-22 06:51] LABS: ALBUMIN 2.8 G/DL (3.4-5.0); ANION GAP 10 (8-16); BLOOD UREA NITROGEN 6 MG/DL (7-18); BUN/CREATININE RATIO 7.2 (5.4-32.0); CALCIUM 8.5 MG/DL (8.5-10.1); CHLORIDE 112 MMOL/L (99-107); CREATININE 0.83 MG/DL (0.60-1.10); GLUCOSE 139 MG/DL (70-104); POTASSIUM 3.9 MMOL/L (3.5-5.1); SODIUM 145 MMOL/L (135-145); TOTAL CARBON DIOXIDE 22.8 MMOL/L (24-32); eGFR > 90 ML/MIN
[2019-03-22 07:29] LABS: TOTAL CELLS COUNTED 100
[2019-03-22 07:34] LABS: PLATELET ESTIMATE NORMAL; POLYCHROMASIA 1+; TOXIC GRANULATION 1+
[2019-03-22 07:35] LABS: LARGE PLATELETS FEW
[2019-03-22] MEDS: famotidine 10mg tablet PO SCH (07:48)
[2019-03-22] MEDS: lactobacillus rhamnosus 10,000 MMU CELLS/CAPSULE PO SCH ×2 (07:48→22:24)
[2019-03-22] MEDS: levetiracetam 250mg tablet PO SCH ×2 (07:48→20:28)
[2019-03-22] MEDS: losartan 50mg tablet PO SCH (07:49)
[2019-03-22] MEDS: amLODIPine 5mg tablet PO SCH (07:49)
[2019-03-22] MEDS: enoxaparin 100mg/ml syringe SUBCUT SCH ×2 (07:55→20:29)
[2019-03-22] MEDS ORDERED: dexamethasone 1mg tablet PO SCH (08:00)
[2019-03-22 10:00] VITALS: BP 119/71
[2019-03-22] MEDS ORDERED: dexamethasone 4mg tablet PO SCH (10:09)
--- NOTE | 2019-03-22 13:00 | NUR ---
UPON RETURNING TO BED, SEVERAL PILLS FELL ON THE FLOOR. DR ROY AWARE AND REQUEST AM MED PASS BE REPEATED.
[2019-03-22] MEDS ORDERED: levetiracetam 250mg tablet PO ONE (13:05)
[2019-03-22] MEDS ORDERED: dexamethasone 4mg tablet PO ONE (13:05)
[2019-03-22 18:00] VITALS: BP 156/96
--- NOTE | 2019-03-22 18:27 | NUR ---
Report rec'd from john Gonzalez.
[2019-03-22] MEDS: dexamethasone 1mg tablet PO SCH (20:28)
[2019-03-22] MEDS ORDERED: AMOX-422 PO (20:29)
[2019-03-22] MEDS ORDERED: DEC1T PO (20:29)
[2019-03-22] MEDS ORDERED: DEC4T PO (20:29)
[2019-03-22 22:00] VITALS: BP 143/94
[2019-03-23 06:00] VITALS: BP 136/83
--- NOTE | 2019-03-23 06:14 | NUR ---
Report given to john Maki.
--- NOTE | 2019-03-23 06:16 | NUR ---
Patient in room ORTHO 4016. I have received report from FLACA Bae and had the opportunity to ask questions and assume patient care.
[2019-03-23 06:46] LABS: BASOPHILS % (AUTO) 0.2 % (0-1); EOSINOPHILS % (AUTO) 0.2 % (0-6); HEMATOCRIT 31.8 % (42.0-52.0); HEMOGLOBIN 11.3 g/dl (14.0-17.9); LYMPHOCYTES # (AUTO) 0.3 X10'3 (1.1-4.8); LYMPHOCYTES % (AUTO) 7.1 % (21-51); MEAN CORPUSCULAR HEMOGLOBIN 33.1 PG (27.0-31.0); MEAN CORPUSCULAR HGB CONC 35.5 g/dL (33.0-36.5); MEAN CORPUSCULAR VOLUME 93.5 FL (78-98); MEAN PLATELET VOLUME 6.7 FL (7.4-10.4); MONOCYTES # (AUTO) 0.4 X10'3 (0-0.9); NEUTROPHILS # (AUTO) 4.1 X10'3 (1.8-7.7); NEUTROPHILS % (AUTO) 84.5 % (42-75); PLATELET COUNT 265 X10'3 (140-440); RED BLOOD COUNT 3.41 X10'6 (4.70-6.10); RED CELL DISTRIBUTION WIDTH 15.8 % (11.5-14.5); WHITE BLOOD COUNT 4.9 X10'3 (4.5-11.0)
[2019-03-23 07:03] LABS: ALBUMIN 2.8 G/DL (3.4-5.0); ANION GAP 7 (8-16); BLOOD UREA NITROGEN 8 MG/DL (7-18); BUN/CREATININE RATIO 11.3 (5.4-32.0); CALCIUM 8.7 MG/DL (8.5-10.1); CHLORIDE 114 MMOL/L (99-107); CREATININE 0.71 MG/DL (0.60-1.10); GLUCOSE 121 MG/DL (70-104); POTASSIUM 3.7 MMOL/L (3.5-5.1); SODIUM 146 MMOL/L (135-145); TOTAL CARBON DIOXIDE 25.1 MMOL/L (24-32); eGFR > 90 ML/MIN
[2019-03-23] MEDS: cefepime 1GM in D5W 50mL 50 ML IV SCH (07:06)
[2019-03-23] MEDS: amLODIPine 5mg tablet PO SCH (07:09)
[2019-03-23] MEDS: famotidine 10mg tablet PO SCH (07:10)
[2019-03-23] MEDS: losartan 50mg tablet PO SCH (07:10)
[2019-03-23] MEDS: lactobacillus rhamnosus 10,000 MMU CELLS/CAPSULE PO SCH (07:10)
[2019-03-23] MEDS: levetiracetam 250mg tablet PO SCH (07:11)
[2019-03-23] MEDS: normal saline 1000ml 1,000 ML IV SCH (07:12)
[2019-03-23] MEDS: enoxaparin 100mg/ml syringe SUBCUT SCH (07:12)
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
== END 2019-03-23 09:05 | disposition home or self-care (01) | DRG 55 ==
LOC: ER 17:37 → ED HOLD 21:06 → ORTHO 4S 23:20
PROVIDERS: ADMIT Internal Medicine; ATTEND Family Medicine
DX: C71.6 Malignant neoplasm of cerebellum (principal); E87.1 Hypo-osmolality and hyponatremia; D64.9 Anemia, unspecified; D70.9 Neutropenia, unspecified; E78.5 Hyperlipidemia, unspecified; G40.909 Epilepsy, unspecified, not intractable, without status epilepticus; R50.81 Fever presenting with conditions classified elsewhere; Z80.0 Family history of malignant neoplasm of digestive organs; Z82.49 Family history of ischemic heart disease and other diseases of the circulatory system; Z85.820 Personal history of malignant melanoma of skin; Z85.841 Personal history of malignant neoplasm of brain; Z95.1 Presence of aortocoronary bypass graft; I10 Essential (primary) hypertension
CPT/HCPCS: 36415; 70450; 71045; 72125; 73060; 80048; 80053; 81001; 83605; 83735; 83880; 84100; 84145; 84484; 85025; 85610; 85730; 87040; 87081; 93005; 96374; 97110; 97116; 97161; 97530; 97535; 99285; G0378; J0692; J0696; J1650; J2405; J3370; J7030; J8540

== ENCOUNTER 2020-02-23 19:44 | Emergency (ER) | payer BC ==
[~2020-02-23] VITALS: Ht 175.3 cm; Wt 124.0 kg
[~2020-02-23 19:44] MED LIST changes: +DEC1T PO; +DEC4T PO; -ENOX100D5 SUBCUT; -TEMO250C6 PO; +[UNRECOGNIZED DRUG - CODE] PO
[2020-02-23] MEDS ORDERED: HUMAN PROTHROMBIN COMPLEX PCC IV ONE ×3 (19:46→21:20)
--- NOTE | 2020-02-23 20:09 | NUR ---
[facility]
[2020-02-23] MEDS ORDERED: niCARDipine-NS 40mg/200ml IVPB 200 ML IV SCH (20:40)
[2020-02-23 20:48] LABS: BASOPHILS % (AUTO) 0.2 % (0-1); EOSINOPHILS % (AUTO) 0.4 % (0-6); HEMATOCRIT 43.9 % (42.0-52.0); HEMOGLOBIN 14.5 g/dl (14.0-17.9); LYMPHOCYTES % (AUTO) 8.9 % (21-51); MEAN CORPUSCULAR HEMOGLOBIN 29.4 PG (27.0-31.0); MEAN CORPUSCULAR HGB CONC 33.1 g/dL (33.0-36.5); MEAN PLATELET VOLUME 7.3 FL (7.4-10.4); MONOCYTES # (AUTO) 0.7 X10'3 (0-0.9); MONOCYTES % (AUTO) 6.2 % (2-12); NEUTROPHILS # (AUTO) 9.7 X10'3 (1.8-7.7); NEUTROPHILS % (AUTO) 84.3 % (42-75); PLATELET COUNT 243 X10'3 (140-440); RED BLOOD COUNT 4.93 X10'6 (4.70-6.10); RED CELL DISTRIBUTION WIDTH 15.3 % (11.5-14.5); WHITE BLOOD COUNT 11.6 X10'3 (4.5-11.0)
[2020-02-23 20:57] LABS: PARTIAL THROMBOPLASTIN TIME 35 SECONDS (22-32)
[2020-02-23 20:58] LABS: ALANINE AMINOTRANSFERASE 29 U/L (12-78); ALBUMIN 3.8 G/DL (3.4-5.0); ALBUMIN/GLOBULIN RATIO 0.9 (1.1-1.5); ALKALINE PHOSPHATASE 86 IU/L (46-116); ANION GAP 7 (8-16); ASPARTATE AMINO TRANSFERASE 14 U/L (10-37); BILIRUBIN,TOTAL 0.3 MG/DL (0.1-1.0); BLOOD UREA NITROGEN 12 MG/DL (7-18); BUN/CREATININE RATIO 11.5 (5.4-32.0); CALCIUM 9.5 MG/DL (8.5-10.1); CHLORIDE 104 MMOL/L (99-107); CREATININE 1.04 MG/DL (0.60-1.10); GLUCOSE 128 MG/DL (70-104); POTASSIUM 4.1 MMOL/L (3.5-5.1); SODIUM 139 MMOL/L (135-145); TOTAL CARBON DIOXIDE 27.9 MMOL/L (24-32); eGFR 73 ML/MIN
[2020-02-23] MEDS ORDERED: TRANEXAMIC ACID 1 GM IN NACL,ISO-OS 100 ML IV ONE (21:15)
--- NOTE | 2020-02-23 21:36 | NUR ---
dr miller at bedside talking to pts and pt about pt being accepted for transfer. air transport getting arranged now.
--- NOTE | 2020-02-23 22:08 | NUR ---
PT TO BE PICKED UP IN APROX 15 MIN WITH CARDIENE GTT DECREASED TO 2.5 ML HR BP ON 5 ML/HR DROPPED TO 138/80. CURRENT BP 144/85. Addendum: 02/23/20 at 2211 by MIRELLA CORRECTION, CARDENE GTT RUNNING AT 2.5 MG/HR, (12.5 ML/HR). WAS INFUSING AT 5 MG/HR (25 ML/HR).
[2020-02-23 22:26] LABS: CLARITY,URINE CLEAR (Clear); COLOR,URINE YELLOW (Yellow); GLUCOSE, URINE NEGATIVE (Neg); KETONES,URINE NEGATIVE (Neg); LEUKOCYTE ESTERASE ,URINE NEGATIVE (Neg); NITRITES, URINE NEGATIVE (Neg); OCCULT BLOOD,URINE MODERATE (Neg); PH,URINE 5.5 (4.8-8.0); PROTEIN,URINE NEGATIVE (Neg); UROBILINOGEN,URINE 0.2 E.U/dL (0.2-1.0)
[2020-02-23 22:30] LABS: UA COLLECTION TYPE URINAL
[2020-02-23 22:39] LABS: BACTERIA,URINE NONE SEEN /HPF (Neg); SQUAMOUS EPITHELIAL CELL,UR FEW /LPF (FEW); WBC,URINE NONE SEEN /HPF (0-4)
--- NOTE | 2020-02-23 22:53 | NUR ---
JAYY WAS GIVEN TO REACH TO GIVE ENROUTE
[2020-02-23 22:56] VITALS: BP 144/68
== END 2020-02-23 23:05 | disposition short-term general hospital (02) ==
LOC: ER 19:45
DX: I62.9 Nontraumatic intracranial hemorrhage, unspecified (principal); C71.9 Malignant neoplasm of brain, unspecified; I10 Essential (primary) hypertension; Z79.899 Other long term (current) drug therapy
CPT/HCPCS: 36415; 70450; 71045; 80053; 81001; 85025; 85610; 85730; 86885; 86900; 86901; 93005; 96365; 96366; 96368; 99291; C9132